=== PATIENT | male | born 1995 | race Caucasian/White ===

== ENCOUNTER 2023-07-21 06:04 | Day surgery (SDC) | payer OTHER ==
[~2023-07-21] VITALS: Ht 190.5 cm; Wt 112.9 kg
[~2023-07-21 06:04] MED LIST: CLAR10CA3 PO; FLUTISP
[2023-07-21] MEDS ORDERED: LR 1,000 ML IV SCH ×3 (06:45→11:35)
[2023-07-21] MEDS ORDERED: LIDOCAINE W/EPINEPHRINE 1% 20ML VIAL As Ordered ONE (07:15)
[2023-07-21] MEDS ORDERED: OXYMETAZOLINE 0.05% NASAL SPRAY (AFRIN) As Ordered ONE (07:16)
[2023-07-21] MEDS ORDERED: COCAINE 4% 4ML NASAL SOLUTION BTL As Ordered ONE (07:16)
[2023-07-21] MEDS ORDERED: propofoL 200 MG/20 ML VIAL As Ordered ONE (07:52)
[2023-07-21] MEDS ORDERED: LIDOCAINE 2% 100MG/5ML SDV (FOR ANES.) As Ordered ONE (07:52)
[2023-07-21] MEDS ORDERED: ONDANSETRON 4MG 2ML VIAL As Ordered ONE (07:52)
[2023-07-21] MEDS ORDERED: SUGAMMADEX SODIUM 500 MG/5 ML VIAL (BRIDION) As Ordered ONE (07:52)
[2023-07-21] MEDS ORDERED: dexmedeTOMIDine (4MCG/ML)200MCG/50ML BTL (PRECEDEX) As Ordered ONE (07:52)
[2023-07-21] MEDS ORDERED: fentaNYL 250 MCG/5 ML INJECTION As Ordered ONE (07:52)
[2023-07-21] MEDS ORDERED: ROCURONIUM BROMIDE 50MG/5ML VIAL As Ordered ONE (07:52)
[2023-07-21] MEDS ORDERED: MIDAZOLAM INJ 2MG/2ML VIAL As Ordered ONE (07:52)
[2023-07-21] MEDS ORDERED: ACETAMINOPHEN 1000MG 100ML IV BAG As Ordered ONE (07:53)
[2023-07-21] MEDS ORDERED: fentaNYL 100 MCG/2 ML INJECTION IV PRN (08:45)
[2023-07-21] MEDS ORDERED: ONDANSETRON 4MG 2ML VIAL IV PRN ×2 (08:45→11:35)
[2023-07-21] MEDS ORDERED: oxyCODONE 5MG TAB PO PRN (08:45)
[2023-07-21] MEDS ORDERED: METOCLOPRAMIDE INJ 10MG/2ML VIAL IV PRN (08:45)
[2023-07-21] MEDS: HYDROMORPHONE HCL 0.5 MG/ 0.5 ML SYRINGE IV PRN ×2 (09:33→09:41)
[2023-07-21 10:08] VITALS: BP 136/96; TEMP 98; O2SAT 98
== END 2023-07-21 10:34 | disposition home or self-care (01) ==
LOC: M SDC 06:04
PROVIDERS: ATTEND Otolaryngology
DX: J34.2 Deviated nasal septum (principal); J34.3 Hypertrophy of nasal turbinates; F17.210 Nicotine dependence, cigarettes, uncomplicated; Z79.899 Other long term (current) drug therapy
CPT/HCPCS: 30140; 30520; C9143; J0131; J1100; J1170; J2250; J2405; J3010

== ENCOUNTER 2023-12-14 06:56 | Day surgery (SDC) | payer OTHER ==
[~2023-12-14] VITALS: Ht 190.5 cm; Wt 109.8 kg
[~2023-12-14 06:56] MED LIST changes: +ACET1TAB55 PO; +LR 1,000 ML IV SCH; +THERTAB52 PO
[2023-12-14] MEDS ORDERED: SUGAMMADEX SODIUM 500 MG/5 ML VIAL (BRIDION) As Ordered ONE (07:07)
[2023-12-14] MEDS ORDERED: LIDOCAINE 2% 100MG/5ML SDV (FOR ANES.) As Ordered ONE (07:07)
[2023-12-14] MEDS ORDERED: ONDANSETRON 4MG 2ML VIAL As Ordered ONE (07:07)
[2023-12-14] MEDS ORDERED: ACETAMINOPHEN 1000MG 100ML IV BAG As Ordered ONE (07:07)
[2023-12-14] MEDS ORDERED: KETOROLAC 60MG 2ML VIAL As Ordered ONE (07:07)
[2023-12-14] MEDS ORDERED: fentaNYL 100 MCG/2 ML INJECTION As Ordered ONE (07:08)
[2023-12-14] MEDS ORDERED: MIDAZOLAM INJ 2MG/2ML VIAL As Ordered ONE (07:08)
[2023-12-14] MEDS: fentaNYL 100 MCG/2 ML INJECTION IV PRN (09:43)
[2023-12-14] MEDS: MIDAZOLAM INJ 2MG/2ML VIAL IV PRN (09:43)
[2023-12-14] MEDS: LIDOCAINE 1% SDV 5ML VIAL PN ONE (09:47)
[2023-12-14] MEDS: ROPIvacaine 0.5% 30ML VIAL PN ONE (09:48)
[2023-12-14] MEDS: VANCOMYCIN 1000MG/20ML VIAL As Ordered ONE (10:16)
[2023-12-14] MEDS: TRANEXAMIC ACID 100 MG/ML 10ML VIAL As Ordered ONE (12:00)
[2023-12-14] MEDS: ceFAZolin SOD 2 GM in IV 1 EA IV ONE (12:00)
[2023-12-14] MEDS ORDERED: ROCURONIUM BROMIDE 50MG/5ML VIAL As Ordered ONE (12:23)
[2023-12-14] MEDS: TRANEXAMIC ACID 100 MG/ML 10ML VIAL IV ONE (12:31)
[2023-12-14] MEDS: EPINEPHrine 1MG/ML INJ 30ML MD-VIAL As Ordered ONE (13:00)
[2023-12-14] MEDS ORDERED: fentaNYL 100 MCG/2 ML INJECTION IV PRN (13:45)
[2023-12-14] MEDS ORDERED: LR 1,000 ML IV SCH (13:45)
[2023-12-14] MEDS ORDERED: ONDANSETRON 4MG 2ML VIAL IV PRN (13:45)
[2023-12-14] MEDS: LIDOCAINE 1% SDV 30ML VIAL As Ordered ONE (13:46)
[2023-12-14] MEDS: oxyCODONE 5MG TAB PO PRN (13:59)
[2023-12-14] MEDS: HYDROMORPHONE HCL 0.5 MG/ 0.5 ML SYRINGE IV PRN (13:59)
[2023-12-14 14:25] VITALS: BP 131/66; TEMP 98; O2SAT 96
== END 2023-12-14 14:47 | disposition home or self-care (01) ==
LOC: M SDC 06:56
PROVIDERS: ATTEND Orthopaedic Surgery
DX: S43.491A Other sprain of right shoulder joint, initial encounter (principal); M25.311 Other instability, right shoulder; X50.0XXA Overexertion from strenuous movement or load, initial encounter; Y92.139 Unspecified place military base as the place of occurrence of the external cause; Y93.89 Activity, other specified; Y99.1 Military activity; F17.200 Nicotine dependence, unspecified, uncomplicated
CPT/HCPCS: 29806; C1713; J0131; J0171; J0690; J1100; J1170; J1885; J2250; J2405; J2795; J3010

== ENCOUNTER 2024-07-15 15:49 | Emergency (ER) | payer OTHER ==
[~2024-07-15] VITALS: Ht 190.5 cm; Wt 110.4 kg
[~2024-07-15 15:49] MED LIST changes: -LR 1,000 ML IV SCH
[2024-07-15 15:52] VITALS: BP 137/75; TEMP 96.8; O2SAT 99
[2024-07-15 16:56] LABS: BASO # 0.1 10^3/uL (0.0-0.2); BASO % 0.7 % (0.0-1.0); EOS # 0.3 10^3/uL (0.0-0.5); EOS % 3.7 % (0.0-3.0); HEMATOCRIT 43.6 % (42.0-52.0); HEMOGLOBIN 14.2 g/dl (13.5-17.5); LYMPH % 28.1 % (24.0-44.0); MEAN CORPUSCULAR HGB CONC 32.6 g/dl (32.0-36.5); MEAN CORPUSCULAR VOLUME 89.2 fl (80.0-96.0); MONO # 0.8 10^3/uL (0.0-0.8); MONO % 11.2 % (2.0-8.0); NEUTROPHILS # 3.9 10^3/uL (1.5-8.5); NEUTROPHILS % 55.7 % (36.0-66.0); PLATELET COUNT, AUTOMATED 278 10^3/uL (150-450); RED BLOOD COUNT 4.89 10^6/uL (4.30-6.10)
[2024-07-15 17:30] LABS: LIPASE 43 U/L (12-53)
[2024-07-15 17:32] LABS: ALBUMIN 3.8 G/DL (3.2-5.2); ALKALINE PHOSPHATASE 56 U/L (40-129); ALT/SGPT 60 U/L (7.0-40); AST/SGOT 38 U/L (<34); BILIRUBIN,DIRECT < 0.1 MG/DL (<0.4); BILIRUBIN,TOTAL 0.4 MG/DL (0.3-1.2); TOTAL PROTEIN 7.1 G/DL (5.7-8.2)
[2024-07-15] MEDS ORDERED: ISOVUE-370 76% 100ML VIAL As Ordered ONE (19:28)
== END 2024-07-15 21:37 | disposition home or self-care (01) ==
LOC: M ED 15:49
DX: I88.0 Nonspecific mesenteric lymphadenitis (principal); K57.30 Diverticulosis of large intestine without perforation or abscess without bleeding; F10.10 Alcohol abuse, uncomplicated; Z79.1 Long term (current) use of non-steroidal anti-inflammatories (NSAID); Z79.810 Long term (current) use of selective estrogen receptor modulators (SERMs)
CPT/HCPCS: 36415; 74177; 80047; 80076; 81001; 83690; 85025; 99284; Q9967